=== PATIENT | female | born 1970 | race Caucasian/White ===

== ENCOUNTER 2022-04-13 14:49 | Outpatient (CLI) | payer BC, SELFPAY ==
--- NOTE | 2022-04-13 15:00 | CRLHL7_ITS ---
For Patients: As a result of the Century Cures Act, medical imaging exams and procedure reports are released immediately into your electronic medical record. You may view this report before your referring provider. If you have questions, please contact your health care provider. BILATERAL SCREENING MAMMOGRAM WITH COMPUTER-AIDED DETECTION TECHNIQUE: CC and MLO views were obtained. These mammographic images have been obtained using full-field digital technique. These mammographic images were interpreted with the benefit of computer-aided detection. COMPARISON FILM: 01/20/21, 11/19/19, 11/12/19. FINDINGS: The breasts are heterogeneously dense, which may obscure small masses. IMPRESSION: There is no radiographic evidence for malignancy. ASSESSMENT: BI-RADS Category 1: Negative RECOMMENDATION: Routine screening mammogram in 1 year. A lay language report of this examination will be provided to the patient. JOSE BYRNE M.D. Diagnostic Radiologist [email or web address] Transcribed: 8:[address]/Dictated by: Jose Byrne MD @ 04/16/2022 1:37:00 PM (Electronically Signed)
== END 2022-04-13 14:50 | disposition home or self-care (01) ==
LOC: MAMMO 14:51
PROVIDERS: PCP Physician Assistant Medical; Visit Provider Physician Assistant Medical
DX: Z12.31 Encounter for screening mammogram for malignant neoplasm of breast (principal)
CPT/HCPCS: 77063; 77067

== ENCOUNTER 2023-07-31 13:22 | Outpatient (CLI) | payer BC, SELFPAY | END 2023-07-31 13:23 | disposition home or self-care (01) | PROVIDERS: PCP Physician Assistant Medical; Visit Provider Physician Assistant Medical | DX: Z00.00 Encounter for general adult medical examination without abnormal findings (principal); E78.5 Hyperlipidemia, unspecified; E11.9 Type 2 diabetes mellitus without complications; I10 Essential (primary) hypertension; M25.50 Pain in unspecified joint; F32.A Depression, unspecified; F41.9 Anxiety disorder, unspecified | CPT/HCPCS: 80053; 80061; 82043; 82306; 82570; 84443; 86200; 86431 ==

== ENCOUNTER 2023-11-21 12:46 | Outpatient (CLI) | payer BC, SELFPAY ==
--- NOTE | 2023-11-21 13:00 | MM_ITS ---
Patient: NALLELY FLOWERS Facility:?[facility] Patient ID:?[id number] Site Patient ID:?[id number]. Site :?[id number] Study:?XRay-Breast Bilateral 3D W/CAD-11/21/2023 2:12:51 PM Ordering Physician:Freya Final Report: BILATERAL SCREENING MAMMOGRAM WITH COMPUTER-AIDED DETECTION AND TOMOSYNTHESIS TECHNIQUE: CC and MLO views were obtained. These mammographic images have been obtained using full-field digital technique. These mammographic images were interpreted with the benefit of computer-aided detection. Breast Tomosynthesis was used in this interpretation. COMPARISON FILM: 04/13/22, 01/20/21, 11/12/19. FINDINGS: The breasts are heterogeneously dense, which may obscure small masses. IMPRESSION: There is no radiographic evidence for malignancy. ASSESSMENT: BI-RADS Category 1: Negative RECOMMENDATION: Routine screening mammogram in 1 year. A lay language report of this examination will be provided to the patient. Jose Maldonado M.D. Diagnostic Radiologist [email or web address] DSM/sp R& Transcribed: 5:53 p.m. SP/Dictated by: Jose Maldonado MD @ 11/22/2023 8:55:00 AM Signed by:?Jose Maldonado MD @11/22/2023 8:19:23 PM (Electronic Signature)
== END 2023-11-21 12:47 | disposition home or self-care (01) ==
LOC: MAMMO 12:47
PROVIDERS: PCP Physician Assistant Medical; Visit Provider Physician Assistant Medical
DX: Z12.31 Encounter for screening mammogram for malignant neoplasm of breast (principal); R92.2 Inconclusive mammogram
CPT/HCPCS: 77063; 77067

== ENCOUNTER 2024-03-11 14:35 | Outpatient (CLI) | payer BC, SELFPAY | END 2024-03-11 14:36 | disposition home or self-care (01) | LOC: NFLDREF 03-12 08:20 | PROVIDERS: PCP Physician Assistant Medical; Referring Provider Physician Assistant Medical; Visit Provider Physician Assistant | DX: N39.0 Urinary tract infection, site not specified (principal); N93.9 Abnormal uterine and vaginal bleeding, unspecified; M54.9 Dorsalgia, unspecified; G54.0 Brachial plexus disorders; M54.6 Pain in thoracic spine | CPT/HCPCS: 87086 ==

== ENCOUNTER 2024-10-01 13:41 | Outpatient (CLI) | payer BC, SELFPAY ==
[2024-10-04 03:17] LABS: HPV Source Cervical/Vag; HPV, High Risk by TMA Not Detected
== END 2024-10-01 13:42 | disposition home or self-care (01) ==
PROVIDERS: PCP Physician Assistant Medical; Visit Provider Physician Assistant Medical
DX: N92.0 Excessive and frequent menstruation with regular cycle (principal); Z12.4 Encounter for screening for malignant neoplasm of cervix; Z11.51 Encounter for screening for human papillomavirus (HPV)
CPT/HCPCS: 87624; 87625; 88141; 88142

== ENCOUNTER 2024-10-05 12:13 | Outpatient (CLI) | payer BC, SELFPAY ==
--- NOTE | 2024-10-05 12:15 | CRLHL7_ITS ---
For Patients: As a result of the Century Cures Act, medical imaging exams and procedure reports are released immediately into your electronic medical record. You may view this report before your referring provider. If you have questions, please contact your health care provider. CLINICAL HISTORY: menorrhagia, bleeding for 6+ weeks including today TECHNIQUE: 2D segovia scale and color Doppler images were acquired of the pelvis using a transvaginal approach. FINDINGS: On transvaginal imaging, the myometrium has a normal uniform echotexture. Uterus measures 8.0 x 4.7 x 6.1 cm. Multiple cervical nabothian cysts are present. The endometrial lining appears thickened with multiple tiny cysts and measures 23 mm in thickness. The left ovary measures 4.1 x 1.9 x 1.8 cm in size and the right ovary measures 2.8 x 2.0 x 1.9 cm. The ovaries demonstrate normal arterial and venous blood flow on color Doppler analysis. There are no suspicious fluid collections within the cul-de-sac. Simple cyst left ovary measures 2.5 x 1.1 x 1.4 cm. IMPRESSION: Thickened endometrium with multiple small cysts. Endometrial thickness 2.3 cm. Possible adenomyosis. Dictated by Jose Maldonado MD @ 10/05/2024 1:24:23 PM (Electronically Signed)
== END 2024-10-05 12:14 | disposition home or self-care (01) ==
LOC: US 12:14
PROVIDERS: PCP Physician Assistant Medical; Visit Provider Physician Assistant Medical
DX: N92.0 Excessive and frequent menstruation with regular cycle (principal); R93.89 Abnormal findings on diagnostic imaging of other specified body structures
CPT/HCPCS: 76830

== ENCOUNTER 2024-10-28 06:07 | Day surgery (SDC) | payer BC, SELFPAY ==
--- OUTSIDE RECORDS SUMMARY | 2024-10-28 06:11 | XMS_ITS | Continuity of Care Document ---
Author Organization [facility] Address [address] [place] [address] Phone Care Team Providers Care Plate Colorer Name Role Phone Arelis Dimas MD Unavailable Unavailable Allergies, Adverse Reactions, Alerts Substance Reaction Status Criticality No Known Allergies Active No Inform ation Medications Medication Instructions Dosage Effective Dates (start - stop) Status Comments methotrexate sodium 25 mg/mL injection solution inject 0.8 milliliter by Subcutaneous route every week - Active 3 month supply folic acid 1 mg tablet take 1 Tablet by ORAL route every day 1 MG - Active prednisone 5 mg tablet take 3 tablets by mouth for 5 days ,then 2 tablets for 5days ,then 1 tablet for 5 days then stop - Active BD Tuberculin Syringe 1 mL 27 x 1/2 every week use with methotrexate sub Q weekly - Active citalopram 20 mg tablet take 1 tablet by oral route every day 20 MG - Active insulin aspart U-100 100 unit/mL subcutaneous solution inject by subcutaneous route per prescriber's instructions. Insulin dosing requires individualization. 0.00 - Active insulin glargine (U-100) 100 unit/mL subcutaneous solution inject by subcutaneous route as per insulin protocol 0.00 - Active citalopram 10 mg tablet take 1.5 tablets by oral route every day - Active lisinopril 10 mg tablet take 1 tablet by oral route every day 10 MG - Active pravastatin 40 mg tablet take 1 tablet by oral route every day 40 MG - Active Vitamin D3 125 mcg (5,000 unit) tablet take 1 Tablet by Oral route every day 1 Tablet - Active ibuprofen 200 mg tablet take 1 - 2 Tablet by oral route every 4 - 6 hours 200 MG - Active Benadryl Allergy 25 mg tablet take 1 tablet by oral route every day as needed 25 MG - Active loratadine 10 mg tablet take 1 tablet by oral route every day 10 MG - Active Procedures Procedure Date Office/Outpatient Visit, Est Complex e/m visit add on Routine Venipuncture Specimen Handling Rbc Sed Rate, Automated Assay Of Serum Albumin Assay Of Creatinine Transferase (Ast) (Sgot) Alanine Amino (Alt) (Sgpt) CReactive Protein Complete Cbc WAuto Diff Wbc X-Ray Exam Of Thoracic Spine Office/Outpatient Visit, Est Complex e/m visit add on Routine Venipuncture Rbc Sed Rate, Automated Assay Of Serum Albumin Assay Of Creatinine Transferase (Ast) (Sgot) Alanine Amino (Alt) (Sgpt) CReactive Protein Complete Cbc WAuto Diff Wbc Office/Outpatient Visit, Est Complex e/m visit add on Routine Venipuncture Rbc Sed Rate, Automated Assay Of Serum Albumin Assay Of Creatinine Transferase (Ast) (Sgot) Alanine Amino (Alt) (Sgpt) CReactive Protein Complete Cbc WAuto Diff Wbc Office/Outpatient Visit, Est Routine Venipuncture Rbc Sed Rate, Automated Assay Of Serum Albumin Assay Of Creatinine Transferase (Ast) (Sgot) Alanine Amino (Alt) (Sgpt) CReactive Protein Complete Cbc WAuto Diff Wbc Office/Outpatient Visit, Est X-Ray Exam Of Foot 3v XRay Exam Of Hand 3v Office/Outpatient Visit, New Routine Venipuncture Specimen Handling Rbc Sed Rate, Automated Assay Of Serum Albumin Assay Of Creatinine Transferase (Ast) (Sgot) Alanine Amino (Alt) (Sgpt) CReactive Protein Dna Antibody, Single Strand Dna Antibody, [place] Nuclear Antigen Antibodies Antinuclear Antibodies CCP Antibody Complete Cbc WAuto Diff Wbc Results Test Name Date and Time Measure Units Reference Range Abnormal Flag Status Comments Panel Description: CBC 5 part diff Final WBC 15:03:00 7.7 K/uL 4.0 - 10.0 Final RBC 15:03:00 4.09 M/uL 3.80 - 5.80 Final Hemoglobin 15:03:00 12.6 g/dL 11.5 - 16.0 Final Hematocrit 15:03:00 38.3 % 37.0 - 47.0 Final MCV 15:03:00 94 fL 80 - 100 Final MCH 15:03:00 30.9 pg 27.0 - 32.0 Final MCHC 15:03:00 33.0 g/dL 32.0 - 36.0 Final RDW 15:03:00 13.4 % 11.0 - 16.0 Final Platelet Count 15:03:00 235 K/uL 150 - 500 Final MPV 15:03:00 7.0 fL 6.0 - 11.0 Final Neutrophils % 15:03:00 65.30 % 0.00 - 99.00 Final Lymphocyte % 15:03:00 15.40 % 25.00 - 50.00 L Final Monocytes % 15:03:00 7.30 % 2.00 - 10.00 Final Eosinophil % 15:03:00 11.30 % 0.00 - 7.00 H Final Basophil % 15:03:00 0.70 % 0.00 - 99.00 Final Neutrophils # 15:03:00 5.02 K/uL 2.00 - 7.50 Final Lymphocyte # 15:03:00 1.2 K/uL 1.0 - 4.0 Final Monocytes # 15:03:00 0.56 K/uL 0.20 - 1.00 Final Eosinophil # 15:03:00 0.87 K/uL 0.00 - 0.50 H Final Basophil # 15:03:00 0.05 K/uL 0.00 - 0.20 Final Panel Description: CRP Final CRP 15:34:00 0.14 MG/DL 0.00 - 0.80 Final Panel Description: DMARD Final AST 16:05:00 15 U/L 10 - 35 Final ALT 16:05:00 16 IU/L 6 - 32 Final Creatinine 16:05:00 0.900 mg/dL 0.500 - 1.050 Final ALB 16:05:00 4.1 g/dL 3.6 - 5.1 Final GFR 16:05:00 75.0 mL/min/1. 73 m2 Final Reported eGFR is based the CKD-EPI 2020 equation that does not use a race coefficient. Panel Description: ESR Final ESR 16:20:00 9 mm/hr 0 - 25 Final Panel Description: TSH Final TSH 06:57:00 0.96 mIU/L 0.40-4.50 N Final Advance Directives Directive Yes / No Effective Date File Name No Information Encounters Encounter Description Practice Location Reason(s) For Visit Diagnoses Date Provider Providers Copied on Encounter Office/Outpa tient Visit, Est [facility], [address], [place], [address], [place] tel:[phone] [facility] , Joint Pain (chief complaint) +RF (chief complaint) 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O ther extermination supervisor (current) drug therapyPain in thoracic spineFatigue 5 Judie Infante. [facility] [address], [place], [address], [place]. tel:[phone] Referring Provider: Arelis Hancock, [facility] [address], [place], [address]. tel:[phone] [facility], [address], [place], [address], [place] tel:[phone] [facility] , No Information 4 Niki Nash. [facility] [address], [place], [address], [place]. tel:[phone] [facility], [address], [place], [address], [place] tel:[phone] [facility] , No Information 4 Judie Infante. [facility] [address], [place], [address], [place]. tel:[phone] Referring Provider: Arelis Hancock, [facility] [address], [place], [address]. tel:[phone] Office/Outpa tient Visit, Est [facility], [address], [place], [address], [place] tel:[phone] [facility] , Joint Pain (chief complaint) +RF (chief complaint) 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O ther retirement (current) drug therapyPain in thoracic spine 4 Judie Infante. [facility] [address], [place], [address], [place]. tel:[phone] Referring Provider: Arelis Hancock, [facility] [address], [place], [address]. tel:[phone] [facility], [address], [place], [address], [place] tel:[phone] [facility] , No Information 4 Judie Infante. [facility] [address], [place], [address], [place]. tel:[phone] Office/Outpa tient Visit, Est [facility], [address], [place], [address], [place] tel:[phone] [facility] , Joint Pain (chief complaint) +RF (chief complaint) 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L jose r term (current) use of non-steroida l anti-inflamm atories (NSAID)Other retirement (current) drug therapy 4 Judie Infante. [facility] [address], [place], [address], [place]. tel:[phone] Referring Provider: Arelis Hancock, [facility] [address], [place], [address]. tel:[phone] [facility], [address], [place], [address], [place] tel:[phone] [facility] , No Information 4 Judie Infante. [facility] [address], [place], [address], [place]. tel:[phone] Office/Outpa tient Visit, Est [facility], [address], [place], [address], [place] tel:[phone] [facility] , Joint Pain (chief complaint) +RF (chief complaint) 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P ain in rt handPain in left handPain in right footPain in left footLong term (current) use of non-steroida l anti-inflamm atories (NSAID)Other extermination supervisor (current) drug therapyNause aPruritus, unspecified Apr-0 4 Judie Infante. [facility] [address], [place], [address], [place]. tel:[phone] Referring Provider: Arelis Hancock, [facility] [address], [place], [address]. tel:[phone] [facility], [address], [place], [address], [place] tel:[phone] [facility] , No Information 4 Judie Infante. [facility] [address], [place], [address], [place]. tel:[phone] Office/Outpa tient Visit, Est [facility], [address], [place], [address], [place] tel:[phone] [facility] , Joint Pain (chief complaint) +RF (chief complaint) Pain in left handPain in rt handPain in left footPain in right foot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P ain in left wristPain in right wristLong term (current) use of non-steroida l anti-inflamm atories (NSAID)Couns eling, unspecified 4 Judie Infante. [facility] [address], [place], [address], [place]. tel:[phone] Referring Provider: Arelis Hancock, [facility] [address], [place], [address]. tel:[phone] [facility], [address], [place], [address], [place] tel:[phone] [facility] , No Information 4 Judie Infante. [facility] [address], [place], [address], [place]. tel:[phone] Referring Provider: Arelis Hancock, [facility] [address], [place], [address]. tel:[phone] Office/Outpa tient Visit, New [facility], [address], [place], [address], [place] tel:[phone] [facility] , Joint Pain (chief complaint) +RF (chief complaint) Pain in unspecified jointPain in left handPain in rt handPain in left footPain in right footPain in kneeOther specified abnormal immunologica l findings in serum 4 Judie Infante. [facility] [address], [place], [address], . tel:[phone] Referring Provider: Arelis Hancock, [facility] [address], [place], [address]. tel:[phone] Family History Family Member Type Diagnosis Age At Onset Father Problem Hypertension Mother Problem Arthritis Mother Problem Anxiety Father Problem Type 2 diabetes Mother Problem Depression Mother Problem Type 2 diabetes Payers Payer name Insurance type Covered republican ID Authorpranav patel(s) [facility] [id number] Social History Type Description Quantity Date Captured Comments Alcohol Use Details No Caffeine Use Details soda Tobacco Use Status Current non-smoker Smoking Status Never smoker Has two adult children, watches her childrens' three dogs during the day, plays pickleball 3x/week, has hobby of hand-making jewelery and cards Sex Female Vital Signs Date / Time: Height Weight BMI Pulse Rate Blood Pressure Temperature Respiratory Rate Body Surface Area Head Circumference Head Circ. Percentile Wt./Pavel. Percentile BMI percentile Pulse Ox Inhaled Ox 2:21 PM 67.00 in 70.760 kg (156.00 lbs) 24.4 3 kg/m eter (2) 130/90 mm[Hg] 97.30 F Chief Complaint And Reason For Visit From encounter dated '10/08/2024 14:15'. Joint Pain (chief complaint) +RF (chief complaint) Reason For Referral Reason For Referral No Information Plan Of Treatment Date Type Action Status Appointment Laura Quezada BOOKED Future Order: Radiology Order Th oracic Spine X-ray (3 views) (30433), Sent on: Sent Future Order: Radiology Order James nd X-ray; Complete (3+ views) ([id number]), Ordered on: Ordered Future Order: Radiology Order Fo ot X-ray; Complete (3+ views) ([id number]), Ordered on: Ordered History Of Present Illness Encounter Date Complaint History Of Prese nt Illness Joint Pain +RF Joint Pain +RF Joint Pain +RF Joint Pain +RF Joint Pain +RF Joint Pain +RF Functional Status Date Functional Assessmen t Pain Score 3/10 Instructions Date Instruction Additional Infor mation cbc, dmard today and q 3 months Related to Other retirement (current) drug therapy Continue methotrexat e 20mg/mL injected weekly and daily folic acidmonitor symptomsrtc: 3-4 months Related to 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 Order Throacic X-Ray Consider physical therapyCall with X-ray results Related to Pain in thoracic spine cbc, dmard today and q 3 months Related to Other retirement (current) drug therapy Continue methotrexat e 20mg/mL injected weekly,and daily folic acidmonitor symptomsrtc: 3-4 months Related to 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 CBC, CR, AST, ALT today and q 6 months Related to extermination supervisor (current) use of non-steroidal anti-inflammatories (NSAID) cbc, dmard today and q 3 months Related to Other extermination supervisor (current) drug therapy labs todaycontinue m ethotrexate 15mg/mL injected weekly, Ibuprofen, and daily folic acidmonitor symptomsrtc: 3 months Related to 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 consider trial of Zy rtec dailyconsider trial of alternative NSAID Related to Pruritus, unspecified encouraged hydrationconsider Zof ran PRN Related to Nausea cbc, dmard today and q 3 months Related to Other retirement (current) drug therapy see #1 Related to Pain in left foot see #4 Related to Pain in right foot labs todaycontinue m ethotrexate 15mg/mL injected weekly, Celebrex, and daily folic acidmonitor symptomsrtc: 3 months Related to 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 CBC, CR, AST, ALT today and q 6 months Related to extermination supervisor (current) use of non-steroidal anti-inflammatories (NSAID) see #2 Related to Pain in rt hand see #1 Related to Pain in left hand see #1 Related to Pain in left hand see #1 Related to Pain in left foot start Celebrex 200mg BIDstart methotrexate 15mg/week injected and 1mg daily folic acidmonitor symptomsrtc: 6-8 weeks with labs Related to 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 rtc: 3-4 weeks Related to Pain in left foot Labs todayXR of jerardo hands and feetContinue Ibuprofen; max 800mg dailyconsider methotrexate vs hydroxychloroquine. rtc: 3-4 weeks Related to Pain in left hand Labs todayXR of jerardo hands and feetContinue Ibuprofenconsider methotrexate vs hydroxychloroquine. rtc: 3-4 weeks Related to Pain in unspecified joint Check CCP antibodiesrtc: 3-4 wee ks Related to Other specified abnormal immunological findings in serum Assessments Type Assessment Date assessment RA w/ rheumatoid fac tor of multiple sites w/o organ involvement assessment Other extermination supervisor (current) drug t herapy assessment Pain in thoracic spine assessment Fatigue Patient Care Teams Name Effective Dates (start - stop) Status Members No Information
[2024-10-28 06:15] VITALS: BMI 24.1
[2024-10-28 06:32] LABS: Ur HCG Qualitative* Negative (Negative)
[2024-10-28] MEDS: SODIUM CHLORIDE 0.9 % (FLUSH) 10 ML SYRINGE IVF (06:40)
[2024-10-28 06:44] VITALS: BP 135/82; PULSE 84; RESP 16; TEMP 37.2; O2SAT 98
[2024-10-28] MEDS: LACTATED RINGERS 500 ML 500 ML 100 ML IV (06:50)
--- NOTE | 2024-10-28 07:22 | W.PM.GYNPROC ---
Procedure Note Date of procedure: 10/28/24 Will [facility] bill your pro fee for this procedure?: Yes Pre-op diagnosis: Dysfunctional uterine bleeding. Post-op diagnosis: Dysfunctional uterine bleeding. Procedure: Hysteroscopy D&C Polypectomy Anesthesia: MAC and local (Paracervical block.) Complications: None. Surgeon: Yeesnia Casiano MD Estimated blood loss (mL): 5 Pathology: specimen obtained, sent to pathology Condition: stable Disposition: same day Findings: Uterine sound length: 10 cm. Retroverted uterus. Multiple (>/=4) endometrial polyps in thickened endometrium. Procedure Description: After obtaining informed consent, the patient was taken to the operating room where she received monitored anesthesia care. She was prepared and draped in the normal sterile fashion, in the dorsal lithotomy position. The bladder was drained of clear urine with a catheter which was then removed. An open-sided bivalve speculum was introduced into the vagina and the cervix visualized. The anterior lip of the cervix was grasped with a single-tooth tenaculum for traction. A paracervical block was then administered using a total of 20 mL of a 50/50 mixture of 0.25% Marcaine and 1% lidocaine plain. The uterus was gently sounded. Sound length was 10 cm. The cervix was gently dilated to a #6 Hegar dilator. A hysteroscope was then advanced under direct visualization through the cervix into the uterine cavity. Sterile normal saline was used as distending medium. The uterine cavity was carefully inspected with the findings noted above. Pictures were taken for documentation purposes. The TruClear morcellator was inserted through the operating channel in the hysteroscope. The morcellator was used to remove the polyps in their entirety. The hysteroscope was then removed. The endometrial lining was then sharply curetted, and additional polypoid tissue removed along with endometrial lining. The hysteroscope was removed. The tenaculum was removed. There was little bleeding from the tenaculum site, which was controlled with direct pressure sponge stick. All instruments were then removed. The patient tolerated the procedure well. Sponge, lap, needle, and instrument counts reported as correct x2. The patient was taken to the recovery room awake in a stable condition. Fluid deficit: 60 mL.
[2024-10-28] MEDS: BUPIVACAINE 0.25% 30 ML 10 ML INJECTION (07:47)
[2024-10-28] MEDS: LIDOCAINE 1% MDV 10 ML INJECTION (07:47)
--- NOTE | 2024-10-28 08:08 | W.ANESCHARGE ---
Anesthesia Charges Start Date/Time Anesthesia Start Date: 10/28/24 Anesthesia Start Time: 07:20 Stop Date/Time Anesthesia Stop Date: 10/28/24 Anesthesia Stop Time: 08:09 Coding CPT Codes CPT Codes: ANESTH VAGINAL PROCEDURES - 51461 ([id number]) P2 - PATIENT W/MILD SYST DISEASE, QZ - MAINTENANCE PLUMBER SVC W/O ROLL WINDER BY
[2024-10-28 08:10] VITALS: BP 126/76; PULSE 74; RESP 16; TEMP 36.1; O2SAT 96
[2024-10-28 08:25] VITALS: BP 127/82; PULSE 81; RESP 16; O2SAT 98
[2024-10-28 08:40] VITALS: BP 136/77; PULSE 94; RESP 16; O2SAT 97
[2024-10-28 08:55] VITALS: BP 153/91; PULSE 75; RESP 16; O2SAT 100
[2024-10-28 09:15] VITALS: BP 148/69; PULSE 66; RESP 16; TEMP 37; O2SAT 100
--- NOTE | 2024-10-28 09:29 | SUR.PHASEII ---
PT tolerated peanut butter toast and Diet Coke. No pain or cramping reported postop. Blood sugar was 197 when arrived to Phase II. MARGARITA Pelaez informed. Pt brought her insulin from home and took her normal 4 units Humalog before eating toast. Pt has a continuous blood glucose monitor and able to track sugars. Pt had shaking chills after she got dressed. Warm blankets placed on pt for a few minutes and then feeling better. Dc to home with .
== END 2024-10-28 09:36 | disposition home or self-care (01) ==
LOC: OR 06:09
PROVIDERS: PCP Physician Assistant Medical; Visit Provider Obstetrics & Gynecology
PROC: 0UDB8ZZ Extraction of Endometrium, Via Natural or Artificial Opening Endoscopic (ICD-10-PCS; CPT 58558; principal; 2024-10-28 07:15)
DX: N92.1 Excessive and frequent menstruation with irregular cycle (principal); N93.8 Other specified abnormal uterine and vaginal bleeding; R93.89 Abnormal findings on diagnostic imaging of other specified body structures; N84.0 Polyp of corpus uteri; E10.9 Type 1 diabetes mellitus without complications; I10 Essential (primary) hypertension; E78.2 Mixed hyperlipidemia; M06.9 Rheumatoid arthritis, unspecified
CPT/HCPCS: 58558; 00940; 81025; 82962; 88305; J2003; C1782; J0665; J1100; J2250; J2405; J2704; J3010; J3490; J7120

== ENCOUNTER 2024-11-26 10:40 | Outpatient (CLI) | payer BC, SELFPAY ==
--- NOTE | 2024-11-26 10:45 | CRLHL7_ITS ---
For Patients: As a result of the Century Cures Act, medical imaging exams and procedure reports are released immediately into your electronic medical record. You may view this report before your referring provider. If you have questions, please contact your health care provider. BILATERAL SCREENING MAMMOGRAM WITH COMPUTER-AIDED DETECTION AND TOMOSYNTHESIS TECHNIQUE: CC and MLO views were obtained. These mammographic images have been obtained using full-field digital technique. These mammographic images were interpreted with the benefit of computer-aided detection. Breast Tomosynthesis was used in this interpretation. COMPARISON FILM: 11/21/23, 04/13/22, 01/20/21. FINDINGS: The breasts are heterogeneously dense, which may obscure small masses. IMPRESSION: There is no radiographic evidence for malignancy. ASSESSMENT: BI-RADS Category 2: Benign RECOMMENDATION: Routine screening mammogram in 1 year. A lay language report of this examination will be provided to the patient. Jose Maldonado M.D. Diagnostic Radiologist [email or web address] SP/Dictated by: Jose Maldonado MD @ 12/01/2024 1:17:00 PM (Electronically Signed)
== END 2024-11-26 10:41 | disposition home or self-care (01) ==
LOC: MAMMO 10:40
PROVIDERS: PCP Physician Assistant Medical; Visit Provider Physician Assistant Medical
DX: Z12.31 Encounter for screening mammogram for malignant neoplasm of breast (principal); R92.333 Mammographic heterogeneous density, bilateral breasts
CPT/HCPCS: 77063; 77067